=== PATIENT | male | born 1985 | race Caucasian/White ===

== ENCOUNTER 2017-01-21 17:00 | Emergency (ER) | payer SELFPAY ==
--- NOTE | 2017-01-21 17:38 | ED Physician Documentation ---
Upper Extremity Injury - HPI Stated Complaint: Fall; Left Elbow Pain Chief Complaint: Upper Extremity Injury Additional Information: fell on concrete, landing on left elbow, now with tingling in arm, abrasions on elbow. states last tetanus was 2012, no other complaints. Onset: just prior to arrival Where: home Severity: mild Duration: persistent since Context: fall Associated Symptoms: tingling. denies: numbness distally, feeling loss, loss of power to arms Modifying Factors: pain on movement Further Comments: no - ROS CONST: no problems CVS/RESP: none NEURO: none MS/SKIN/LYMPH: none GI/: denies: nausea, vomiting - PAST HX Past History: Rt handed Immunizations: tetanus, UTD Allergies/Adverse Reactions: Allergies Allergy/AdvReac Type Severity Reaction Status Date / Time Penicillins Allergy Intermediate Verified 01/21/17 17:24 Home Medications: Ambulatory Orders Medication Instructions Recorded Lisinopril [Zestril] 10 mg PO DAILY 05/04/16 Buspirone HCl [BUSPAR] 5 mg PO DAILY 01/21/17 - SOCIAL HX Smoking History: non-smoker Alcohol Use: occasionally Drug Use: none - FAMILY HX Family History: none - VITAL SIGNS Vital Signs: Vital Signs Temp Pulse Resp BP Pulse Ox 98.2 F 108 H 18 146/81 94 01/21/17 17:02 01/21/17 17:30 01/21/17 17:02 01/21/17 17:02 01/21/17 17:02 - REVIEWED ASSESSMENTS Nursing Assessment Reviewed: Yes Vitals Reviewed: Yes ED Results Lab/Radiology - Radiology Radiology Impressions: negative for fracture. - Orders Orders: ED Orders Category Date Time Status ELBOW 3 VIEWS [RAD] Stat Exams 01/21/17 17:12 Taken Upper Extremity Injury Physic - Physical Exam General Appearance: no acute distress, alert Hand: normal inspection Wrist: normal inspection Elbow/Forearm: abrasions, soft tissue tenderness (mild edema , abrasions to left elbow, decreased ROM secondary to pain), swelling Shoulder: normal inspection Neuro/Vascular/Tendon: no vascular compromise Skin: warm,dry Head/ENT: nml inspection Neck/Back: nml inspection Resp/CVS: no resp. distress Abdomen: non-tender Discharge Clincal Impression: Abrasion of elbow without infection Contusion of left elbow and forearm Qualifiers: Encounter type: initial encounter Qualified Code(s): S50.12XA - Contusion of left forearm, initial encounter Referrals: Primary Doctor,No [Primary Care Provider] - 2 Days Home Medications: Ambulatory Orders Lisinopril [Zestril] 10 mg PO DAILY 05/04/16 Buspirone HCl [BUSPAR] 5 mg PO DAILY 01/21/17 Condition: Good Disposition: 01 HOME, SELF-CARE Decision to Admit: NO Date of Decison to Admit: 01/21/17 Decision Time: 17:38
--- NOTE | 2017-01-21 17:44 | Diagnostic Imaging Report ---
TIARA GRAY~ [facility] [address] [facility].[address] [address] ~ ~ ~ ~ Report Submission Date: Jan 21, 2017 5:35:01 PM CDT Patient ~ Study Name: TATE LENZ ~ Date: Jan 21, 2017 5:20:21 PM CDT ~ Modality Type: CR Gender: M ~ Description: UPPER EXTREMITY : 81 ~ Institution: [facility] Physician: TIARA GRAY ~ ~ ~ ~ Left elbow 3 views Clinical history pain Technique AP lateral oblique Findings: There is no fracture or joint effusion. Bone density is normal. Impression: Negative left elbow ~ Electronically signed on Jan 21, 2017 5:35:01 PM CDT by: Nilson SELBY
[2017-01-21] MEDS: TRIPLE ANTIBIOTIC OINTMENT PAC 1 PACKET TOP PRN (17:50)
[2017-01-21] MEDS: traMADol HCL 50 MG TABLET PO ONE (17:50)
[2017-01-21 18:05] VITALS: BP 128/71
== END 2017-01-21 18:00 | disposition home or self-care (01) ==
LOC: ED 17:00
DX: S50.12XA Contusion of left forearm, initial encounter (principal); W19.XXXA Unspecified fall, initial encounter; Y93.9 Activity, unspecified; Y99.9 Unspecified external cause status
CPT/HCPCS: 73080; 99283

== ENCOUNTER 2017-02-25 16:59 | Emergency (ER) | payer SELFPAY ==
--- NOTE | 2017-02-25 17:21 | ED Physician Documentation ---
General Adult - HISTORIAN Historian: patient - HPI Stated Complaint: dental pain Chief Complaint: General Adult Additional Information: Right mandibular molar with cavity, swelling of gum, pain, since yesterday. Can' t see dentist till at least 03/02. - ROS CONST: no problems - PAST HX Past History: hypertension Allergies/Adverse Reactions: Allergies Allergy/AdvReac Type Severity Reaction Status Date / Time Penicillins Allergy Intermediate Verified 01/21/17 17:24 - SOCIAL HX Smoking History: cigarettes - FAMILY HX Family History: No - VITAL SIGNS Vital Signs: Vital Signs Temp Pulse Resp BP Pulse Ox 128/71 01/21/17 18:04 - REVIEWED ASSESSMENTS Nursing Assessment Reviewed: Yes Vitals Reviewed: Yes General Adult Physical Exam - PHYSICAL EXAM GENERAL APPEARANCE: mild distress EENT: eye inspection normal, pharynx normal, other (poor dentition throughout. Many absent teeth. remaining mandibular molar with decay, gingival erythema) NECK: normal inspection, supple RESPIRATORY: no resp distress RECTAL: deferred BACK: other (erect posture) SKIN: warm/dry, normal color EXTREMITIES: normal range of motion (gait), no evidence of injury NEURO: CN's nml as tested, motor nml, sensation nml Discharge Clincal Impression: Pain, dental Referrals: Primary Doctor,No [Primary Care Provider] - 2 Days Additional Instructions: See the dentist as soon as possible. Take all the antibiotics as prescribed until they are completely gone. You can take 1000 mg tylenol up to three times a day. You can also take 600 mg ibuprofen every 6 hours with food. Condition: Good Disposition: HOME, SELF-CARE Decision to Admit: NO Decision Time: 17:25
[2017-02-25 17:23] VITALS: BP 148/93
== END 2017-02-25 17:30 | disposition home or self-care (01) ==
LOC: ED 16:59
DX: K08.89 Other specified disorders of teeth and supporting structures (principal)
CPT/HCPCS: 99283

== ENCOUNTER 2018-02-18 13:23 | Emergency (ER) | payer SELFPAY ==
[2018-02-18 13:35] VITALS: BP 169/110
--- NOTE | 2018-02-18 13:35 | ED Physician Documentation ---
General Adult - HISTORIAN Historian: patient - HPI Stated Complaint: R side pain Chief Complaint: General Adult Onset: days ago (3) Timing: still present Severity: moderate Further Comments: yes (Pt is a 32 yo male with pain in his R chest wall x 3 days. It hurts to move and to take a deep breath. 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.) - ROS CONST: no problems EYES/ENT: none CVS/RESP: other (R chest wall pain) GI/: none MS/SKIN/LYMPH: other (R chest wall pain) - PAST HX Past History: hypertension Allergies/Adverse Reactions: Allergies Allergy/AdvReac Type Severity Reaction Status Date / Time Penicillins Allergy Intermediate Verified 02/18/18 13:35 Home Medications: Ambulatory Orders Medication Instructions Recorded traMADol HCL [Ultram] 50 mg PO Q4H PRN #18 tablet 02/25/17 Lisinopril [Prinivil] 10 mg PO DAILY #30 tablet 02/18/18 - SOCIAL HX Smoking History: cigarettes - FAMILY HX Family History: No - VITAL SIGNS Vital Signs: Vital Signs Temp Pulse Resp BP Pulse Ox 148/93 02/25/17 17:30 - REVIEWED ASSESSMENTS Nursing Assessment Reviewed: Yes Vitals Reviewed: Yes Progress - Progress Progress: CXR & R ribs: There is no rib fracture or abnormal bone production or destruction. Included PA chest radiograph demonstrates no active pulmonary disease. Impression: Normal. Toradol 60 mg IM in ER. NSAIDS Also refill Lisinopril 10 mg po qd #30 with 5 RF for HTN. General Adult Physical Exam - PHYSICAL EXAM GENERAL APPEARANCE: mild distress NECK: normal inspection, supple RESPIRATORY: no resp distress, breath sounds normal, other (R upper chest wall tenderness) CVS: reg rate & rhythm, heart sounds normal ABDOMEN: soft, no organomegaly, normal bowel sounds BACK: normal inspection, no CVA tenderness SKIN: warm/dry, normal color EXTREMITIES: non-tender, normal range of motion, no evidence of injury, no edema NEURO: oriented X3, motor nml, sensation nml Discharge Clincal Impression: Anterior chest wall pain, Refill Lisinopril Prescriptions: Lisinopril [Prinivil] 10 mg PO DAILY #30 tablet Referrals: Primary Doctor,No [Primary Care Provider] - 2 Days Condition: Good Disposition: HOME, SELF-CARE Decision to Admit: NO Decision Time: 14:48
[2018-02-18] MEDS ORDERED: KETOROLAC TROMETHAMINE 60 MG/2 ML VIAL ONE (13:39)
[2018-02-18] MEDS ORDERED: KETOROLAC TROMETHAMINE 60 MG/2 ML VIAL IM ONE (13:39)
--- NOTE | 2018-02-18 14:26 | Diagnostic Imaging Report ---
ROGELIO BALDWIN [facility] [address] [facility] [address] [address] Report Submission Date: Feb 18, 2018 2:23:47 PM CDT Patient Study Name: TATE LENZ Date: Feb 18, 2018 1:57:11 PM CDT Modality Type: DX Gender: M Description: CHEST : 81 Institution: [facility] Physician: ROGELIO BALDWIN Right ribs with PA chest History: Injury, rib pain Findings: There is no rib fracture or abnormal bone production or destruction. Included PA chest radiograph demonstrates no active pulmonary disease. Impression: Normal. Electronically signed on Feb 18, 2018 2:23:47 PM CDT by: Cecil SELBY
== END 2018-02-18 14:50 | disposition home or self-care (01) ==
LOC: ED 13:23
DX: R07.89 Other chest pain (principal); Z76.0 Encounter for issue of repeat prescription
CPT/HCPCS: 71101; J1885; 96372; 99283

== ENCOUNTER 2018-04-13 19:33 | Emergency (ER) | payer SELFPAY ==
[2018-04-13] MEDS ORDERED: KETOROLAC TROMETHAMINE 60 MG/2 ML VIAL IM ONE (19:46)
[2018-04-13] MEDS ORDERED: ORPHENADRINE CITRATE 60 MG/2ML IM ONE (19:46)
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
[2018-04-13 21:00] VITALS: BP 138/98
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
== END 2018-04-13 20:50 | disposition home or self-care (01) ==
LOC: ED 19:33
DX: S50.12XA Contusion of left forearm, initial encounter (principal); S39.012A Strain of muscle, fascia and tendon of lower back, initial encounter; V89.2XXA Person injured in unspecified motor-vehicle accident, traffic, initial encounter; Y92.9 Unspecified place or not applicable; Y93.9 Activity, unspecified; Y99.9 Unspecified external cause status
CPT/HCPCS: 72100; 96372; 99283; J1885; J2360

== ENCOUNTER 2018-08-25 15:14 | Emergency (ER) | payer SELFPAY ==
[2018-08-25] MEDS ORDERED: NORMAL SALINE 1,000 ML IV.SOLN IV ONE (15:39)
[2018-08-25] MEDS ORDERED: LIDOCAINE TP STA (15:42)
[2018-08-25] MEDS ORDERED: PRILOCAINE TP STA (15:42)
[2018-08-25] MEDS ORDERED: HYDROcodone /APAP 5/325 1 EACH TABLET PO STA (15:45)
[2018-08-25] MEDS ORDERED: ONDANSETRON HCL 4 MG TAB.RAPDIS PO STA (15:46)
--- NOTE | 2018-08-25 15:50 | ED Physician Documentation ---
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 pt presents to the ED via POV c/o wooden stick embedded in s kin above left eyebrow in upward fashion after slipping and falling to the side off steps at his [place] [email or web address] denies visual changes or eye pain. denies other injury or complaints. pt denies current chest pain, dyspnea, syncope/near syncope, headache, dizziness, visual disturbances, n/v/d, fever/chills, rash, sick contacts, dysuria, melena or hematochezia, bleeding or easy bruising, change in bowel or bladder function, no recent weight loss/gain, anxiety or depression. ROS Negative unless otherwise specified. Onset: just prior to arrival Where: home Timing: still present - ROS CONST: other (see HPI) CVS/RESP: denies: chest pain, shortness of breath, palpitations EYES/ENT: denies: problems with vision, sore throat, nasal drainage, nasal congestion GI/: denies: abdominal pain, problems urinating, vomiting, nausea NEURO/PSYCH: denies: fainting, dizziness, tingling, numbness, anxiety, depression MS/SKIN/LYMPH: denies: none, calf pain, neck pain, joint pain, leg swelling - PAST HX Past History: other (htn) Medications: see nurse note Allergies: NKDA - SOCIAL HX Smoking History: chew (widespread dental decay) Alcohol Use: none Drug Use: none - FAMILY HX Family History: No - VITAL SIGNS Vital Signs: Vital Signs Temp Pulse Resp BP Pulse Ox 138/98 04/13/18 20:45 - REVIEWED ASSESSMENT Nursing Assessment Reviewed: Yes Vitals Reviewed: Yes Procedures Wound Location: head Suture Size/Type: 3:0 Progress: The patient was educated on the procedure to and help prevent infection. The patient consented with suturing and his questions were addressed prior to the procedure. advised pt there is a risk of a scar and infection and measures would be taken to prevent and the pt would need follow up. pt verbalized understanding. Procedure: prior to procedure LET was placed superficially and allowed to dwell for approx 30 min. The patient was examined and found to have a foreign body (perea wood twig see assessment) at Left eye brow. anesthetic-5 ml of lidocaine 1% epinephrine was instilled. a #15 scapel was used to open the skin superior to the FB. the FB was removed. Mild speck like amounts of twig remain. irrigated with sterile saline 250 ml and cleansed with hibacleanse. no FB visualized in a bloodless environment. Sterile techniques were observed and the patient received a total of #3- 4.0 prolene sutures in addition to nonadherent bandaging. bacitracin applied. The patient is discharged home in stable condition. The patient has indicated a clear understanding of the clinical findings, diagnosis, and treatment plan, and has no further questions or concerns at this time. Written instructions provided on suture instructions and s/s of infection. pt tolerated well ED Results Lab/Radiology - Radiology Radiology Impressions: Report Submission Date: Aug 25, 2018 4:58:45 PM RUSH SEATER Patient Study Name: TATE LENZ Date: Aug 25, 2018 4:10:02 PM RUSH SEATER Modality Type: CT\SR Gender: M Description: CT MAXILLOFACIAL W/ : 81 Institution: [facility] Physician: ANTONELLA SANDHU CT maxillofacial without and with contrast Clinical history: Foreign body insertion Technique: Multiple contiguous axial images were taken the maxillofacial region without the use of contrast. Findings: The mandible, zygomatic arches, maxilla sinus jc, nasal bones are intact. There is a large left maxilla sinus mucus retention cyst. No fractures identified. No radiopaque foreign bodies are identified. Postcontrast imaging demonstrates no abscess identified. In the left periorbital tissues there is a subcutaneous gas compatible with subcutaneous injury. The retro orbital fat is normal. Wood is not well visualized on CT as it is not radiopaque. Impression: Subcutaneous injury to the left preorbital tissues. The retro orbital fat and orbits are unremarkable. Electronically signed on Aug 25, 2018 4:58:45 PM RUSH SEATER by: Broderick Weinstein Facial Injury Physical Exam - Physical Exam General Appearance: no acute distress, alert Head: trauma Neck: non-tender, painless ROM, trachea midline Nexus Criteria: Nexus criteria neg Eye: lids nml, conjunctivae nml, PERRL, EOMI ENT: nml external exam, pharynx nml, no injury to teeth, no injury to lips, no injury to gums Neuro/Psych: oriented x3, sensation nml, motor nml, mood/affect nml, conservation science teacher nml, reflexes nml, conservation science teacher symmetrical Respiratory: chest non-tender, no ecchymosis, breath sounds nml, no resp. distress, heart sounds nml CVS: reg. rate & rhythm, heart sounds nml Abdomen: non-tender, no organomegaly Skin: other (FB wooden branch Superior to Right eye pointing up at approx 150 degrees and outside the skin at approx 350 degrees. no hemorrhage or edema or erythema. tender. approx 0.5 cm in diameter. ) Extremities: non-tender, nml ROM Discharge Clincal Impression: Soft tissues foreign body Additional Instructions: Rest Doxycycline 100 mg BID x 5 days. return in 5 days for suture removal. or go to primary care. keep covered with bandaid for 24 hours. after this you may leave open to air at night. covered during the day. after 24 hours may run water briefly over wound do not scrub, soak. do not put additional antibiotic ointment on the wound. Monitor and seek medical care for worsening symptoms or signs of infection: fever, chills, pus drainage, vomiting, increased swelling, redness, vision change. or any concern. -UNDERSTAND THAT THIS IS AN EMERGENCY EVALUATION FOR YOUR COMPLAINT TODAY AND BY NATURE IS LIMITED AND NOT A SUBSTITUTE FOR ONGOING MEDICAL CARE AND THAT EVEN THOUGH TEST RESULTS AND TREATMENT PLAN WERE EXPLAINED THERE MAY BE A NEED FOR ADDITIONAL TESTING TO FULLY DETERMINE THE EXTENT OF YOUR ILLNESS/INJURY/OR CONCERN SO YOU SHOULD CONTACT AND OR ESTABLISH WITH A PRIMARY CARE PROVIDER (OR REFERRAL DOCTOR IF APPLICABLE) FOR AN APPOINTMENT SOON POSSIBLE. Condition: Good Disposition: 01 HOME, SELF-CARE Decision to Admit: NO Date of Decison to Admit: 08/25/18 Decision Time: 18:03
[2018-08-25] MEDS ORDERED: EPINEPHRINE TOP ONE (16:31)
[2018-08-25] MEDS ORDERED: TETRACAINE TOP ONE (16:31)
[2018-08-25] MEDS ORDERED: LIDOCAINE TOP ONE (16:31)
--- NOTE | 2018-08-25 17:00 | Diagnostic Imaging Report ---
ANTONELLA SANDHU [facility] [address] [facility] [address] [address] Report Submission Date: Aug 25, 2018 4:58:45 PM PALEOLOGY TEACHER Patient Study Name: TATE LENZ Date: Aug 25, 2018 4:10:02 PM PALEOLOGY TEACHER Modality Type: CT\SR Gender: M Description: CT MAXILLOFACIAL W/ : 81 Institution: [facility] Physician: ANTONELLA SANDHU CT maxillofacial without and with contrast Clinical history: Foreign body insertion Technique: Multiple contiguous axial images were taken the maxillofacial region without the use of contrast. Findings: The mandible, zygomatic arches, maxilla sinus jc, nasal bones are intact. There is a large left maxilla sinus mucus retention cyst. No fractures identified. No radiopaque foreign bodies are identified. Postcontrast imaging demonstrates no abscess identified. In the left periorbital tissues there is a subcutaneous gas compatible with subcutaneous injury. The retro orbital fat is normal. Wood is not well visualized on CT as it is not radiopaque. Impression: Subcutaneous injury to the left preorbital tissues. The retro orbital fat and orbits are unremarkable. Electronically signed on Aug 25, 2018 4:58:45 PM PALEOLOGY TEACHER by: Broderick SELBY
[2018-08-25] MEDS ORDERED: LIDOCAINE HCL 1% PF 50MG/5ML AMP (IM/SUTURE/PAIN CLINIC) IJ STA (17:03)
[2018-08-25] MEDS ORDERED: LIDOCAINE HCL 1%/EPI. (1:100,000) MDV 20ML VIAL IJ ONE (17:08)
[2018-08-25] MEDS ORDERED: fentaNYL CITRATE/PF 100 MCG/2 ML INJ. ONE (17:18)
[2018-08-25] MEDS ORDERED: DOXYCYCLINE 100 MG CAPSULE PO STA (17:57)
[2018-08-25] MEDS ORDERED: fentaNYL CITRATE/PF 100 MCG/2 ML INJ. IVP STA (17:57)
[2018-08-25] MEDS ORDERED: NEOMYCIN/BACITRACIN/POLYMYXINB OINT 15 GM TP STA (18:34)
[2018-08-25 18:41] VITALS: BP 144/94
--- NOTE | 2018-08-26 04:22 | Diagnostic Imaging Report ---
ANTONELLA SANDHU [facility] [address] [facility] [address] [address] Report Submission Date: Aug 25, 2018 4:58:45 PM FIELD SERVICE MANAGER Patient Study Name: TATE LENZ Date: Aug 25, 2018 4:10:02 PM FIELD SERVICE MANAGER Modality Type: CT\SR Gender: M Description: CT MAXILLOFACIAL W/ : 81 Institution: [facility] Physician: ANTONELLA SANDHU CT maxillofacial without and with contrast Clinical history: Foreign body insertion Technique: Multiple contiguous axial images were taken the maxillofacial region without the use of contrast. Findings: The mandible, zygomatic arches, maxilla sinus jc, nasal bones are intact. There is a large left maxilla sinus mucus retention cyst. No fractures identified. No radiopaque foreign bodies are identified. Postcontrast imaging demonstrates no abscess identified. In the left periorbital tissues there is a subcutaneous gas compatible with subcutaneous injury. The retro orbital fat is normal. Wood is not well visualized on CT as it is not radiopaque. Impression: Subcutaneous injury to the left preorbital tissues. The retro orbital fat and orbits are unremarkable. Electronically signed on Aug 25, 2018 4:58:45 PM FIELD SERVICE MANAGER by: Broderick SELBY
== END 2018-08-25 18:20 | disposition home or self-care (01) ==
LOC: ED 15:14
DX: S00.252A Superficial foreign body of left eyelid and periocular area, initial encounter (principal); W10.9XXA Fall (on) (from) unspecified stairs and steps, initial encounter; W45.8XXA Other foreign body or object entering through skin, initial encounter; Y93.9 Activity, unspecified; Y92.008 Other place in unspecified non-institutional (private) residence as the place of occurrence of the external cause
CPT/HCPCS: 10120; 70480; 70488; 99283; 99285; A9270; J3010; J7030; Q9967; S1016

== ENCOUNTER 2019-06-09 18:25 | Emergency (ER) | payer OTHER ==
--- NOTE | 2019-06-09 18:50 | ED Physician Documentation ---
Sore Throat/Dental Pain - HISTORIAN Historian: patient - HPI Stated Complaint: left upper dental pain Chief Complaint: Dental Pain Additional Information: Patient presents to ED with left upper dental pain for past 2 days. Patient has been taking Advil with some relief. Onset: days ago (2) Context: Fractured Tooth, Dental Caries Associated Symptoms: denies: fever, chills Worsened By: heat, cold, other (air) - ROS CONST: no problems CVS/RESP: denies: chest pain, shortness of breath GI/: denies: nausea, vomiting MS/SKIN/LYMPH: denies: muscle aches NEURO/PSYCH: denies: headache - PAST HX Past History: gum disease Other History: none Allergies/Adverse Reactions: Allergies Allergy/AdvReac Type Severity Reaction Status Date / Time Penicillins Allergy Intermediate Verified 12/05/18 23:04 Home Medications: Ambulatory Orders Medication Instructions Recorded Lisinopril [Prinivil] 10 mg PO DAILY #30 tablet 02/18/18 Azithromycin [Zithromax] 250 mg PO DAILY #4 tablet 12/06/18 - SOCIAL HX Smoking History: cigarettes, greater than 1 pack/day Alcohol Use: none Drug Use: none - FAMILY HX Family History: No - VITAL SIGNS Vital Signs: Vital Signs Temp Pulse Resp BP Pulse Ox 153/113 12/05/18 23:07 - REVIEWED ASSESSMENTS Nursing Assessment Reviewed: Yes Vitals Reviewed: Yes Dental Pain Physical Exam - EXAM General Appearance: no acute distress, alert Head/Neck: head nml inspection Eyes: PERRL Mouth/Throat: gum swelling around teeth, widespread dental decay Ear/Nose: nml inspection Respiratory: no resp. distress, breath sounds nml, respiratory distress CVS: reg. rate & rhythm, heart sounds nml Abdomen: soft, normal bowel sounds Extremities: non-tender Skin: warm/dry, normal color Neuro/Psych: none Discharge Clincal Impression: Pain, dental Referrals: Primary Doctor,No [Primary Care Provider] - 2 Days Additional Instructions: 1. Ibuprofen 800mg every 8 hours and/or Tylenol 650mg every 4 hours as needed for pain. These may be taken together for better pain control. 2. Mouth rinses after meals and snacks. 1 tsp salt and 1 tsp baking soda in 4 ounces warm water. 3. Smoking cessation recommended. 4. Follow up with dentist as soon as possible 5. Return to ER for new or worsening symptoms. Condition: Stable Disposition: 01 HOME, SELF-CARE Decision to Admit: NO Date of Decison to Admit: 06/09/19 Decision Time: 18:56
[2019-06-09] MEDS ORDERED: CLINDAMYCIN HCL 150 MG CAPSULE PO ONE (19:01)
[2019-06-09] MEDS ORDERED: traMADol HCL 50 MG TABLET PO ONE (19:01)
[2019-06-09 19:13] VITALS: BP 141/86
== END 2019-06-09 19:13 | disposition home or self-care (01) ==
LOC: ED 18:25
DX: K08.89 Other specified disorders of teeth and supporting structures (principal); F17.210 Nicotine dependence, cigarettes, uncomplicated
CPT/HCPCS: 99282; 99283

== ENCOUNTER 2019-07-14 01:12 | Emergency (ER) | payer OTHER ==
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
[2019-07-14] MEDS: DIPH,PERTUSS(ACELL),TET VAC/PF 0.5 ML DISP.SYRIN IM ONE (02:15)
[2019-07-14] MEDS: LIDOCAINE HCL 2% MDV 400MG/20ML VIAL IP ONE (02:16)
[2019-07-14] MEDS: LIDOCAINE HCL 2% PF 100MG/5ML VIAL IJ ONE (02:17)
[2019-07-14 02:28] VITALS: BP 135/81
== END 2019-07-14 02:19 | disposition home or self-care (01) ==
LOC: ED 01:12
DX: S01.511A Laceration without foreign body of lip, initial encounter (principal); W26.8XXA Contact with other sharp object(s), not elsewhere classified, initial encounter
CPT/HCPCS: 12011; 90715; 99282